=== PATIENT | female | born 1955 | race Caucasian/White ===

== ENCOUNTER 2022-03-12 11:35 | Outpatient (CLI) | payer OTHER, SELFPAY ==
--- NOTE | ~2022-03-12 | XR_ITS ---
XR knee RT min 4V 03/12/2022 12:14 Indication: Right knee pain Procedure: 4 views right knee Comparison: No prior studies for comparison. Findings: Mild osteoarthritis of the right knee. No fracture, subluxation or dislocation. No signific ant joint effusion. No foreign bodies. Impression: 1: Mild osteoarthritis of the right knee. Reviewed, dictated and finalized at location A. Impression: 1: Mild osteoarthritis of the right knee.
--- NOTE | ~2022-03-12 | XR_ITS ---
XR knee LT min 4V 03/12/2022 12:14 Indication: Left knee pain. Elevated sedimentation rate. Procedure: 4 views left knee Comparison: No prior studies for comparison. Findings: No fracture, subluxation or dislocation. No significant soft tissue abnormality. No joint e ffusion. There is anatomic alignment. No erosive changes. No foreign bodies. Impression: 1: No significant bone or joint abnormality. Reviewed, dictated and finalized at location A. Impression: 1: No significant bone or joint abnormality.
--- NOTE | ~2022-03-12 | XR_ITS ---
EXAMINATION: XR hand BI arthritis min 3V DATE: 03/12/2022 12:14 INDICATION: Unspecified osteoarthritis, unspecified site. TECHNIQUE: 4 views of right hand and 4 views of left hand on a total of 7 radiographs were obtained. COMPARISON: None. FINDINGS: RIGHT HAND: There is radial subluxation of second and third distal phalanges with respect to the midd le phalanges. No fracture. There is mild osteoarthritis of triscaphe joint, severe osteoarthritis of first carpometacarpal joint, and mild osteoarthritis of many of the interphalangeal joints. There is moderate osteoarthritis of second and third distal interphalangeal joints. LEFT HAND: Bone alignment is normal. No fracture. There is severe osteoarthritis of first carpometaca rpal joint and mild osteoarthritis of some of the interphalangeal joints. There is severe osteoarthri tis of fourth distal interphalangeal joint, likely posttraumatic. IMPRESSION: 1. Polyarticular osteoarthritis. Reviewed, dictated and finalized at location A.
[2022-03-12 12:45] LABS: Basophils Percent Auto 0.3 % (0.2-1.2); Eosinophils Absolute Auto 0.1 K/mm3 (0-0.3); Hematocrit 42.2 % (37.0-47.0); Hemoglobin 13.8 g/dL (12.0-15.0); Immature Granulocyte Absolute 0.02 K/mm3 (0.00-0.031); Immature Granulocyte Percent A 0.3 % (0-0.5); Lymphocytes Absolute Auto 1.81 K/mm3 (0.9-3.2); Lymphocytes Percent Auto 23.2 % (18.3-44.2); Mean Corpuscular HGB Conc 32.7 g/dl (32-36); Mean Corpuscular Hemoglobin 31.8 pg (26-34); Mean Corpuscular Volume 97.2 fl (80-100); Mean Platelet Volume 10.1 fl (7.4-10.4); Monocytes Absolute Auto 0.5 K/mm3 (0.1-0.6); Monocytes Percent Auto 6.9 % (2.6-8.5); Neutrophils Absolute Auto 5.3 K/mm3 (1.3-6.7); Neutrophils Percent Auto 68.3 % (45.5-73.1); Platelet Count Result 271 k/mm3 (150-375); Red Blood Count 4.34 M/mm3 (4.2-5.4); Red Cell Distribution Width 12.5 % (11.5-14.5); White Blood Count 7.8 K/mm3 (4.5-10.0)
[2022-03-12 12:59] LABS: Alanine Aminotransferase 26 U/L (6-35); Albumin Level 4.4 g/dL (3.5-5.1); Alkaline Phosphatase 136 U/L (38-126); Anion Gap 11 mmol/L (8-16); Aspartate Amino Transferase 26 U/L (14-36); Bilirubin,Total 0.5 mg/dL (0.2-1.3); Blood Urea Nitrogen 11 mg/dL (7-17); CRP 1.2 mg/dL (<1.0); Calcium 9.2 mg/dL (8.4-10.2); Carbon Dioxide 26 mmol/L (22-30); Chloride 106 mmol/L (98-107); Creatine Kinase 113 U/L (30-135); Estimated Glomerular Filt Rate > 60; Glucose 100 mg/dL (65-110); Potassium 4.2 mmol/L (3.4-5.0); Rheumatoid Factor < 8.6 IU/ML (<12); Sodium 143 mmol/L (137-145)
[2022-03-12 14:33] LABS: Erythrocyte Sedimentation Rate 89 mm/hr (0-20)
[2022-03-14 22:03] LABS: Anti Cyclic Citrullinated Pept <16 Units (<20)
[2022-03-15 04:44] LABS: Aldolase 3.7 U/L (<=8.1)
== END 2022-03-12 11:36 | disposition home or self-care (01) ==
PROVIDERS: PCP Family Medicine; Visit Provider Internal Medicine
DX: R70.0 Elevated erythrocyte sedimentation rate (principal); M25.562 Pain in left knee; M79.605 Pain in left leg; M79.10 Myalgia, unspecified site; M17.11 Unilateral primary osteoarthritis, right knee; M19.041 Primary osteoarthritis, right hand; M19.042 Primary osteoarthritis, left hand
CPT/HCPCS: 36415; 73130; 73564; 80053; 82085; 82550; 84550; 85025; 85652; 86038; 86039; 86140; 86200; 86430

== ENCOUNTER 2022-04-01 15:27 | Outpatient (CLI) | payer OTHER, SELFPAY ==
--- NOTE | ~2022-04-01 | XR_ITS ---
EXAMINATION: XR chest 2V 04/01/2022 15:41 INDICATION: Rheumatoid arthritis PROCEDURE: 2 view chest COMPARISON: No prior studies for comparison. FINDINGS: The lungs are clear. There is calcified granuloma right lower lobe. 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 The cardiomediastinal silhouette is within normal limits. There are no pleural effusions. There is no pneumothorax suspected. IMPRESSION: 1: NO ACUTE CARDIOPULMONARY DISEASE. Reviewed, dictated and finalized at location B.
[2022-04-01 16:23] LABS: Add Urine Microscopic? YES; Appearance Urine Cloudy (Clear); Bacteria Urine Trace /hpf; Bilirubin Urine Negative (Negative); Blood Urine Negative (Negative); Color Urine Yellow (Yellow); Glucose Urine UA Negative (Negative); Ketones Urine Negative (Negative); Leukocyte Esterase Ur 2+ LEU/UL (Negative); Mucus Urine Rare /lpf; Nitrate Urine Negative (Negative); Protein Urine Negative (Negative); Squamous Epithelial Cell Urine Many /hpf (Few); Urobilinogen Urine Negative mg/dL (<2.0)
[2022-04-01 16:24] LABS: Specific Grav Ur 1.004 (1.001-1.035)
== END 2022-04-01 15:28 | disposition home or self-care (01) ==
LOC: ANHIMG 15:30
PROVIDERS: PCP Family Medicine; Visit Provider Internal Medicine
DX: M06.9 Rheumatoid arthritis, unspecified (principal); Z11.59 Encounter for screening for other viral diseases; Z79.899 Other long term (current) drug therapy
CPT/HCPCS: 71046; 81001; 87086; 87088

== ENCOUNTER 2022-04-29 12:48 | Outpatient (CLI) | payer OTHER, SELFPAY ==
[2022-04-29 13:25] LABS: Hematocrit 41.9 % (37.0-47.0); Hemoglobin 13.7 g/dL (12.0-15.0); Mean Corpuscular HGB Conc 32.7 g/dl (32-36); Mean Corpuscular Hemoglobin 31.2 pg (26-34); Mean Corpuscular Volume 95.4 fl (80-100); Mean Platelet Volume 9.9 fl (7.4-10.4); Platelet Count Result 302 k/mm3 (150-375); Red Blood Count 4.39 M/mm3 (4.2-5.4); Red Cell Distribution Width 12.4 % (11.5-14.5); White Blood Count 8.9 K/mm3 (4.5-10.0)
[2022-04-29 13:40] LABS: Alanine Aminotransferase 25 U/L (6-35); Albumin Level 4.2 g/dL (3.5-5.1); Alkaline Phosphatase 125 U/L (38-126); Anion Gap 10 mmol/L (8-16); Aspartate Amino Transferase 27 U/L (14-36); Bilirubin,Total 0.4 mg/dL (0.2-1.3); Blood Urea Nitrogen 16 mg/dL (7-17); CRP 1.4 mg/dL (<1.0); Calcium 9.3 mg/dL (8.4-10.2); Carbon Dioxide 28 mmol/L (22-30); Chloride 104 mmol/L (98-107); Creatine Kinase 54 U/L (30-135); Estimated Glomerular Filt Rate > 60; Glucose 87 mg/dL (65-110); Potassium 4.1 mmol/L (3.4-5.0); Sodium 142 mmol/L (137-145); Uric Acid 5.5 mg/dL (2.5-7.5)
[2022-04-29 13:42] LABS: Complement C3 123 mg/dL (88-165)
[2022-04-29 13:50] LABS: Appearance Urine Cloudy (Clear); Bilirubin Urine Negative (Negative); Blood Urine Negative (Negative); Color Urine Yellow (Yellow); Glucose Urine UA Negative (Negative); Ketones Urine Trace mg/dL (Negative); Leukocyte Esterase Ur 2+ LEU/UL (Negative); Nitrate Urine Negative (Negative); Protein Urine Trace mg/dL (Negative); Specific Grav Ur >= 1.030 (1.001-1.035); Urobilinogen Urine 0.2 mg/dL (<2.0)
[2022-04-29 13:58] LABS: Bacteria Urine Trace /hpf; Mucus Urine Rare /lpf; Squamous Epithelial Cell Urine Many /hpf (Few); WBC Urine 31-50 /hpf
[2022-04-29 14:04] LABS: Add Urine Microscopic? YES
[2022-04-29 14:06] LABS: Carcinoembryonic Antigen 0.9 ng/mL (0.0-3.0)
[2022-04-29 15:15] LABS: Erythrocyte Sedimentation Rate 48 mm/hr (0-20)
[2022-05-02 12:08] LABS: SM Antibody <1.0; SM/RNP Antibody <1.0
[2022-05-02 21:56] LABS: SS-A <1.0; SS-B <1.0
[2022-05-04 04:16] LABS: Aldolase 3.6 U/L (<=8.1); Angiotensin Converting Enzyme 36 U/L (9-67)
[2022-05-04 06:39] LABS: CA 19-9 4 U/mL (<34)
[2022-05-05 12:55] LABS: Lupus dRVVT Screen 39 sec (<=45); PTT-LA Screen 36 sec (<=40)
== END 2022-04-29 12:49 | disposition home or self-care (01) ==
PROVIDERS: PCP Family Medicine; Visit Provider Internal Medicine
DX: M15.9 Polyosteoarthritis, unspecified (principal); R70.0 Elevated erythrocyte sedimentation rate; M25.562 Pain in left knee; M79.605 Pain in left leg; M79.10 Myalgia, unspecified site
CPT/HCPCS: 36415; 80053; 81001; 82085; 82164; 82378; 82550; 84550; 85027; 85613; 85652; 85730; 86140; 86160; 86225; 86235; 86301; 87086; 87088

== ENCOUNTER 2022-05-20 16:03 | Outpatient (CLI) | payer OTHER, SELFPAY ==
[2022-05-20 20:17] LABS: IFOB Positive Control Positive; Immunochemical Fecal Occult Bl Negative (N)
== END 2022-05-20 16:04 | disposition home or self-care (01) ==
PROVIDERS: PCP Family Medicine; Visit Provider Internal Medicine
DX: R70.0 Elevated erythrocyte sedimentation rate (principal); M25.562 Pain in left knee; M15.9 Polyosteoarthritis, unspecified; M79.605 Pain in left leg; M79.10 Myalgia, unspecified site
CPT/HCPCS: 82274

== ENCOUNTER 2022-07-25 15:23 | Outpatient (CLI) | payer OTHER, SELFPAY ==
[2022-07-25 15:56] LABS: Hematocrit 43.8 % (37.0-47.0); Hemoglobin 14.4 g/dL (12.0-15.0); Mean Corpuscular HGB Conc 32.9 g/dl (32-36); Mean Corpuscular Hemoglobin 31.4 pg (26-34); Mean Corpuscular Volume 95.4 fl (80-100); Mean Platelet Volume 10.1 fl (7.4-10.4); Platelet Count Result 265 k/mm3 (150-375); Red Blood Count 4.59 M/mm3 (4.2-5.4); Red Cell Distribution Width 12.6 % (11.5-14.5); White Blood Count 8.4 K/mm3 (4.5-10.0)
[2022-07-25 16:10] LABS: Alanine Aminotransferase 25 U/L (6-35); Albumin Level 4.7 g/dL (3.5-5.1); Alkaline Phosphatase 139 U/L (38-126); Anion Gap 7 mmol/L (8-16); Aspartate Amino Transferase 25 U/L (14-36); Bilirubin,Total 0.5 mg/dL (0.2-1.3); Blood Urea Nitrogen 11 mg/dL (7-17); CRP 0.9 mg/dL (<1.0); Calcium 9.2 mg/dL (8.4-10.2); Carbon Dioxide 27 mmol/L (22-30); Chloride 102 mmol/L (98-107); Creatine Kinase 76 U/L (30-135); Estimated Glomerular Filt Rate > 60; Glucose 88 mg/dL (65-110); Potassium 3.9 mmol/L (3.4-5.0); Sodium 136 mmol/L (137-145)
[2022-07-25 16:33] LABS: Erythrocyte Sedimentation Rate 31 mm/hr (0-20)
[2022-07-30 13:41] LABS: Aldolase 5.5 U/L (<=8.1)
[2022-07-30 18:58] LABS: Creatinine, Random Urine 83 mg/dL (20-275); Total Protein/Creatinine Ratio 60 mg/g creat (24-184)
== END 2022-07-25 15:24 | disposition home or self-care (01) ==
PROVIDERS: PCP Family Medicine; Visit Provider Internal Medicine
DX: M79.10 Myalgia, unspecified site (principal); R70.0 Elevated erythrocyte sedimentation rate; M15.9 Polyosteoarthritis, unspecified; M79.605 Pain in left leg; M25.562 Pain in left knee
CPT/HCPCS: 36415; 80053; 82085; 82550; 82570; 84156; 84166; 84182; 85027; 85652; 86140; 86235